=== PATIENT | female | born 1955 | race African-American/Black ===

== ENCOUNTER 2017-03-17 12:25 | Emergency (ER) | payer OTHER ==
[~2017-03-17] VITALS: Ht 149.9 cm; Wt 79.5 kg
[2017-03-17 14:46] VITALS: BP 140/88
== END 2017-03-17 15:34 | disposition home or self-care (01) ==
LOC: EMS 12:25
DX: M20.091 Other deformity of right finger(s) (principal); F17.210 Nicotine dependence, cigarettes, uncomplicated
CPT/HCPCS: 99284

== ENCOUNTER 2018-01-26 06:07 | Emergency (ER) | payer OTHER ==
[~2018-01-26] VITALS: Ht 165.1 cm; Wt 75.0 kg
[2018-01-26 07:18] VITALS: BP 149/86
== END 2018-01-26 07:29 | disposition home or self-care (01) ==
LOC: EMS 06:07
DX: S00.511A Abrasion of lip, initial encounter (principal); F17.210 Nicotine dependence, cigarettes, uncomplicated; Z71.6 Tobacco abuse counseling; W22.8XXA Striking against or struck by other objects, initial encounter; Y93.89 Activity, other specified; Y92.091 Bathroom in other non-institutional residence as the place of occurrence of the external cause; Y99.8 Other external cause status
CPT/HCPCS: 99282; 99283; 99406

== ENCOUNTER 2020-03-10 12:26 | Emergency (ER) | payer OTHER ==
[~2020-03-10] VITALS: Ht 149.9 cm; Wt 59.1 kg
[2020-03-10 14:50] VITALS: BP 145/88
== END 2020-03-10 14:53 | disposition home or self-care (01) ==
LOC: EMS 12:30
DX: S90.111A Contusion of right great toe without damage to nail, initial encounter (principal); F17.210 Nicotine dependence, cigarettes, uncomplicated; W20.8XXA Other cause of strike by thrown, projected or falling object, initial encounter; Y93.89 Activity, other specified; Y92.89 Other specified places as the place of occurrence of the external cause; Y99.8 Other external cause status